=== PATIENT | female | born 1975 | race Caucasian/White ===

== ENCOUNTER 2019-09-15 21:05 | Emergency (ER) | payer MEDICAID ==
[2019-09-15 21:45] VITALS: BP 147/88; PULSE 72
--- NOTE | 2019-09-16 04:22 | ER ---
DATE SEEN: 09/15/2019 CHIEF COMPLAINT: Nasal congestion. HISTORY OF PRESENT ILLNESS: This is a 44-year-old female complaining of nasal blockage for 2 hours. She is unable to breathe through her nose. She has tried Vicks Vaporizer and saline nasal drops with no improvement. She feels the head is congested and squeezed. However, she has had no fever or chills. PAST MEDICAL HISTORY: She has a history of obesity, depression, hypertension. SOCIAL HISTORY: Nonsmoker. ALLERGIES: Penicillin, cefaclor, and paroxetine. PHYSICAL EXAMINATION: GENERAL: She is afebrile, mildly diaphoretic. EARS, NOSE, AND THROAT: Show nasal boggy mucosa with no drainage. NECK: Supple. CHEST: Clear. CARDIOVASCULAR: Normal. IMPRESSION: Nasal blockage. PLAN: I gave her oxymetazoline drops 2 sprays in each nostril every 12 hours for 3 days. Recommend also to try Claritin or neti pot from [employer]. Return to the ED with any worsening symptoms. /[id number] LEROY/MERLINE
== END 2019-09-15 21:30 | disposition home or self-care (01) ==
LOC: FB.ED 21:05
DX: R09.81 Nasal congestion (principal); I10 Essential (primary) hypertension; E66.9 Obesity, unspecified; Z68.41 Body mass index [BMI] 40.0-44.9, adult
CPT/HCPCS: 99283

== ENCOUNTER 2021-10-11 22:18 | Emergency (ER) | payer MEDICAID ==
[2021-10-11] MEDS ORDERED: Ketorolac 30 MG/ML SDV IM STA (23:23)
[2021-10-11] MEDS ORDERED: traMADol 50 MG Tab PO STA (23:23)
[2021-10-11 23:59] VITALS: BP 156/86; PULSE 84
== END 2021-10-11 23:45 | disposition home or self-care (01) ==
LOC: FB.ED 22:18
DX: K80.20 Calculus of gallbladder without cholecystitis without obstruction (principal); R07.89 Other chest pain; I10 Essential (primary) hypertension; J45.909 Unspecified asthma, uncomplicated; E66.9 Obesity, unspecified; Z68.30 Body mass index [BMI] 30.0-30.9, adult; Z88.0 Allergy status to penicillin; Z91.048 Other nonmedicinal substance allergy status; Z88.1 Allergy status to other antibiotic agents; Z88.8 Allergy status to other drugs, medicaments and biological substances; Z79.899 Other long term (current) drug therapy; Z68.41 Body mass index [BMI] 40.0-44.9, adult
CPT/HCPCS: 36415; 80053; 82150; 83690; 85025; 96372; 99283; 99284; A9270-GY; J1885

== ENCOUNTER 2021-11-15 20:00 | Emergency (ER) | payer MEDICAID ==
[2021-11-15] MEDS ORDERED: Ondansetron 4 MG Tab.DIS PO ONE ×2 (20:01→20:26)
[2021-11-15 22:28] VITALS: BP 161/83; PULSE 89
== END 2021-11-15 21:15 | disposition home or self-care (01) ==
LOC: FB.ED 20:00
DX: K91.5 Postcholecystectomy syndrome (principal); R11.2 Nausea with vomiting, unspecified; I10 Essential (primary) hypertension; E66.9 Obesity, unspecified; Z88.0 Allergy status to penicillin; Z91.048 Other nonmedicinal substance allergy status; Z88.1 Allergy status to other antibiotic agents; Z88.8 Allergy status to other drugs, medicaments and biological substances; Z79.899 Other long term (current) drug therapy; Z68.41 Body mass index [BMI] 40.0-44.9, adult
CPT/HCPCS: 99283; Q0162